=== PATIENT | female | born 1990 | race Caucasian/White ===

== ENCOUNTER → 2019-11-18 | Outpatient (REF) | payer OTHER | LOC: M LAB REF 10:05 | PROVIDERS: ATTEND Physician Assistant | DX: J02.9 Acute pharyngitis, unspecified (principal) ==

== ENCOUNTER → 2020-04-08 | Outpatient (REF) | payer OTHER ==
[2020-04-08 16:54] LABS: HEMOGLOBIN 12.7 g/dl (12.0-15.5); MEAN CORPUSCULAR HEMOGLOBIN 30.5 pg (27.0-33.0); MEAN CORPUSCULAR HGB CONC 34.3 g/dl (32.0-36.5); MEAN CORPUSCULAR VOLUME 88.7 fl (80.0-96.0); PLATELET COUNT, AUTOMATED 234 10^3/uL (150-450); RED BLOOD COUNT 4.17 10^6/uL (4.00-5.40); WHITE BLOOD COUNT 8.1 10^3/uL (4.0-10.0)
[2020-04-08 17:43] LABS: HCG, SERUM QUANTITATIVE 111485 MIU/ML
[2020-04-09 10:08] LABS: HEPATITIS C VIRUS ABY INDEX 0.2 INDEX (<0.8); HIV 1&2 SCREEN CENTAUR NEGATIVE (NEGATIVE)
== END ==
LOC: M LAB REF 16:29
PROVIDERS: ATTEND Obstetrics & Gynecology
DX: O36.80X0 Pregnancy with inconclusive fetal viability, not applicable or unspecified (principal); Z3A.00 Weeks of gestation of pregnancy not specified

== ENCOUNTER → 2020-04-13 | Outpatient (CLI) | payer OTHER ==
--- NOTE | 2020-04-13 16:35 | REP ---
INDICATION: DATING/VIABILITY COMPARISON: None. TECHNIQUE: Transabdominal 1st trimester obstetrical ultrasound with color Doppler evaluation. FINDINGS: Single live early intrauterine is appreciated. Gestational sac with yolk sac and pole identified. [place]-rump length of 2 cm corresponds to 8 weeks 4 days gestational age with estimated date of delivery 11/19/2020. heart rate equals 179 beats per minute. No gross abnormalities are identified. Left maternal adnexal cyst measuring 2.4 x 2.1 x 2.0 cm likely corpus luteum. IMPRESSION: Single live early intrauterine at 8 weeks 4 days gestational age. Complete anatomical assessment should be performed and 19-20 weeks. <Electronically signed by Galdino Olivo > 04/13/20 [id number]
== END ==
LOC: M WHC 15:59
PROVIDERS: ATTEND Advanced Practice Midwife
DX: Z36.89 Encounter for other specified antenatal screening (principal); Z3A.08 8 weeks gestation of pregnancy

== ENCOUNTER → 2020-04-13 | Outpatient (CLI) | payer SELFPAY | LOC: M LABSMTC 14:25 | PROVIDERS: ATTEND Pediatrics | DX: Z20.828 Contact with and (suspected) exposure to other viral communicable diseases (principal) ==

== ENCOUNTER → 2020-06-24 | Outpatient (CLI) | payer OTHER ==
--- NOTE | 2020-06-24 12:06 | REP ---
INDICATION: ANATOMY COMPARISON: 04/13/2020 TECHNIQUE: Transabdominal obstetrical ultrasound with color Doppler evaluation. FINDINGS: Examination demonstrates a single live intrauterine in breech presentation. motion is identified by technologist. Placenta is noted posterior and grade 1 without evidence for placenta previa or abruption. Amniotic fluid volume is normal. Cervix measures 3.1 cm in length and appears closed.. Gestational age by LMP and 1st ultrasound 19 weeks 0 days with DANK 11/18/2020. Gestational age by current measurements 18 weeks 3 days with DANK 11/22/2020. FHR equals 158 beats per minute. BPD: 3.9 cm at 17 weeks 6 days HC: 14.9 cm at 18 weeks 0 days AC: 13.5 cm at 19 weeks 0 days FL: 2.8 cm at there is 18 weeks 4 days HL: 2.7 cm at 18 weeks 4 days HC/AC: 1.10 Estimated weight 253 grams (29thpercentile). Anatomical assessment demonstrates normal structures including cranium, choroid plexus, cavum, cerebellum/posterior fossa, facial features, lungs, four-chamber heart/ventricular outflow tracts, diaphragm, stomach, cord insertion/three-vessel cord, kidneys/bladder, spine, and extremities. IMPRESSION: Single live intrauterine in breech presentation demonstrating appropriate estimated weight. Anatomical assessment is complete and normal. <Electronically signed by Galdino Olivo > 06/24/20 [id number]
== END ==
LOC: M WHC 08:58
PROVIDERS: ATTEND Obstetrics & Gynecology
DX: Z34.82 Encounter for supervision of other normal pregnancy, second trimester (principal); Z3A.18 18 weeks gestation of pregnancy

== ENCOUNTER → 2020-06-24 | Outpatient (CLI) | payer OTHER | LOC: M PLALAB 11:30 | PROVIDERS: ATTEND Obstetrics & Gynecology | DX: Z34.90 Encounter for supervision of normal pregnancy, unspecified, unspecified trimester (principal); Z3A.00 Weeks of gestation of pregnancy not specified ==

== ENCOUNTER → 2020-08-19 | Outpatient (REF) | payer OTHER ==
[2020-08-19 18:07] LABS: HEMATOCRIT 33.2 % (36.0-47.0); HEMOGLOBIN 11.5 g/dl (12.0-15.5); MEAN CORPUSCULAR HEMOGLOBIN 32.8 pg (27.0-33.0); MEAN CORPUSCULAR HGB CONC 34.6 g/dl (32.0-36.5); MEAN CORPUSCULAR VOLUME 94.6 fl (80.0-96.0); PLATELET COUNT, AUTOMATED 193 10^3/uL (150-450); RED BLOOD COUNT 3.51 10^6/uL (4.00-5.40); WHITE BLOOD COUNT 9.1 10^3/uL (4.0-10.0)
== END ==
LOC: M PLALAB 14:36
PROVIDERS: ATTEND Advanced Practice Midwife
DX: Z34.92 Encounter for supervision of normal pregnancy, unspecified, second trimester (principal); Z3A.23 23 weeks gestation of pregnancy
CPT/HCPCS: 36415; 82950; 85027; 86850; 86900; 86901; J2790

== ENCOUNTER → 2020-10-20 | Outpatient (REF) | payer OTHER | LOC: M PLALAB 18:23 | PROVIDERS: ATTEND Obstetrics & Gynecology | DX: Z36.89 Encounter for other specified antenatal screening (principal); Z3A.36 36 weeks gestation of pregnancy ==

== ENCOUNTER → 2020-10-22 | Outpatient (REF) | payer OTHER | LOC: M SFHCWAGY 13:05 | PROVIDERS: ATTEND Obstetrics & Gynecology | DX: Z34.93 Encounter for supervision of normal pregnancy, unspecified, third trimester (principal); Z3A.36 36 weeks gestation of pregnancy ==

== ENCOUNTER 2020-11-17 15:38 | Inpatient (IN) | payer OTHER ==
[~2020-11-17] VITALS: Ht 157.5 cm; Wt 73.7 kg
[2020-11-17] VITALS (18 sets, daily range): BP systolic 129–150; BP diastolic 66–99
[2020-11-17] MEDS ORDERED: TUMS750C22 PO (16:04)
[2020-11-17] MEDS ORDERED: PRENTAB9 PO (16:04)
[2020-11-17 17:38] LABS: HEMATOCRIT 35.2 % (36.0-47.0); HEMOGLOBIN 12.4 g/dl (12.0-15.5); MEAN CORPUSCULAR HGB CONC 35.2 g/dl (32.0-36.5); PLATELET COUNT, AUTOMATED 160 10^3/uL (150-450); RED BLOOD COUNT 3.87 10^6/uL (4.00-5.40); WHITE BLOOD COUNT 9.3 10^3/uL (4.0-10.0)
[2020-11-17 17:47] LABS: TOTAL PROTEIN,RANDOM URINE 7.1 MG/DL (0.0-12.0)
[2020-11-17 18:01] LABS: ALBUMIN 2.3 GM/DL (3.2-5.2); ALT/SGPT 18 U/L (12-78); BILIRUBIN,TOTAL 0.4 MG/DL (0.2-1.0); BLOOD UREA NITROGEN 11 MG/DL (7-18); CALCIUM LEVEL 8.3 MG/DL (8.5-10.1); CARBON DIOXIDE LEVEL 23 MEQ/L (21-32); CHLORIDE LEVEL 110 MEQ/L (98-107); CREATININE FOR GFR 0.48 MG/DL (0.55-1.30); GLOMERULAR FILTRATION RATE > 60.0 (>60); GLUCOSE, FASTING 72 MG/DL (70-100); LDH LACTATE DEHYDROGENASE 139 U/L (84-246); POTASSIUM SERUM 3.9 MEQ/L (3.5-5.1); SODIUM LEVEL 142 MEQ/L (136-145); TOTAL PROTEIN 5.5 GM/DL (6.4-8.2); URIC ACID 5.3 MG/DL (2.6-6.0)
[2020-11-17] MEDS ORDERED: LACTATED RINGER'S 1000 ML IV STA (19:03)
[2020-11-17] MEDS ORDERED: OXYTOCIN DRIP 30 UNITS in IV 1 EA IV PRN (19:05)
[2020-11-17] MEDS ORDERED: METHYLERGONOVINE MALEATE 0.2 MG/ML VIAL (J2210) IM PRN (19:05)
[2020-11-17] MEDS ORDERED: LIDOCAINE 1% MDV 20ML VIAL INFIL PRN (19:05)
[2020-11-17] MEDS ORDERED: OXYTOCIN DRIP 30 UNITS in IV 1 EA IV SCH (19:05)
[2020-11-17] MEDS ORDERED: CARBOPROST TROMETHAMINE 250 MCG/ML AMP IM PRN (19:05)
[2020-11-17] MEDS ORDERED: LR 1,000 ML IV SCH ×2 (19:05)
[2020-11-17] MEDS ORDERED: TRANEXAMIC ACID INJection 1,000 MG in NS 100 ML IV PRN (19:05)
[2020-11-17] MEDS ORDERED: OXYTOCIN 30 UNITS IN 0.9% NaCl 500ML IV BAG (J2590) As Ordered ONE (19:06)
[2020-11-18] VITALS (11 sets, daily range): BP systolic 118–159; BP diastolic 67–97
[2020-11-18 00:02] LABS: GC DNA AMPLIFICATION NEGATIVE (NEGATIVE)
--- NOTE | 2020-11-18 01:34 | HPEPDOC ---
Obstetrical History & Physical General Date of Admission Nov 17, 2020 at 19:02 History of Present Illness 30-year-old G 2 P 1001 admitted at 39+6 weeks gestation. Presents for an induction of labor. Indication for induction: Gestational hypertension She denies vaginal bleeding, loss of fluid or painful, frequent uterine contra ctions. She reports regular movement. She denies headache, visual changes, right upper quadrant pain, shortness of breath or chest pain. 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 STI or dysplasia OB: 2018, 38 weeks, , complicated by gestational hypertension/IOL, hemorrhage retained placenta Sochx: No tobacco, alcohol or drug use FamHx: Hypertension, paternal grandfather had breast cancer labs: Blood type A-, antibody screen negative, HepBsAg neg, HIV neg, rubella immune, Hep C antibody negative, RPR nonreactive, CT/GC neg, urine cu lture negative, 1 hour glucose challenge test within normal limits, GBS negative Past Medical History Allergies Coded Allergies: No Known Allergies (Unverified , 11/17/20) Medications Scheduled Calcium Carbonate (Tums) 300 Mg Tab.chew, 1 TAB PO BID No.137/Iron/Folic Acd ( Vitamin Tablet) 1 Each Tablet, 1 TAB PO DAILY Physical Examination Physical Examination Initial blood pressures were hypertensive GENERAL: Alert and oriented times three. ABDOMEN: Gravid and non-tender to touch. FETUS: Is vertex (VTX) by sterile vaginal examination (SVE), fetus is vertex (VTX) by Dayo. HEART RATE: Regular rate and rhythm. LUNGS: Clear to auscultation (CTA). EXTREMITIES: No edema. No clonus. Deep tendon reflexes (DTRs) + 2 SVE: 4 cm 80% effaced -2 station, cephalic, intact, no bloody show EFM: Category 1 [place]: Irregular infrequent contractions upon admission Vital Signs/I&O Vital Signs Date Time Temp Pulse Resp B/P (MAP) Pulse Ox O2 Delivery O2 Flow Rate FiO2 11/18/20 00:05 89 18 118/74 (89) 11/17/20 22:55 97.9 Laboratory Data 24H LABS Laboratory Tests 2 11/17/20 16:56: Urine Random Creatinine 122.0, Urine Random Total Protein 7.1 11/17/20 17:25: Nucleated Red Blood Cells % (auto) 0.0, Anion Gap 9, Glomerular Filtration Rate > 60.0, Uric Acid 5.3, Calcium Level 8.3L, Total Bilirubin 0.4, Aspartate Amino Transf (AST/SGOT) 13, Alanine Aminotransferase (ALT/SGPT) 18, Alkaline Phosphatase 150H, Lactate Dehydrogenase 139, Total Protein 5.5L, Albumin 2.3L, Albumin/Globulin Ratio 0.7L, Syphilis Serology NONREACTIVE 11/17/20 19:06: Serology Scanned Report Hepatitis B Testing 11/17/20 21:21: Chlamydia trachomatis DNA (DAGOBERTO) NEGATIVE, Neisseria gonorrhoeae DNA (DAGOBERTO) NEGATIVE CBC/BMP Laboratory Tests 11/17/20 17:25 Assessment/Plan Assessment 30-year-old -0-0-1 admitted at 39+6 weeks gestation with a diagnosis of gestational hypertension. Reassuring maternal and status Plan Admit and orient. Paper Goods Machine Operator and consent. Labs and intravenous (IV) per unit protocol. Rationale for recommendation of induction of labor reviewed with the patient and her family Counseled on Pitocin and induction of labor (IOL). Anticipate normal spontaneous delivery (). C-S as appropriate. TI CHIRINOS DO Nov 18, 2020 01:34
--- NOTE | 2020-11-18 01:37 | IPNPDOC ---
Obstetrical Progress Note Date of Service Nov 18, 2020 Subjective Patient becoming more uncomfortable with contractions. No loss of fluid or vaginal bleeding. Continues to deny any headaches visual changes right upper quadrant pain shortness breath or chest pain Objective Vital Signs Date Time Temp Pulse Resp B/P (MAP) Pulse Ox O2 Delivery O2 Flow Rate FiO2 11/18/20 00:05 89 18 118/74 (89) 11/17/20 22:55 97.9 Assessment Heart Rate Tracing: Category I Tocometer Contractions: Yes Frequency: every 2-5 min. (Pitocin at 8 milliunits/min) Sterile Vaginal Examination Dilation: 5 cm Effacement (%): 100% Station: -1 Cervical Consistency: Soft Cervical Position: Anterior Postion/Presentation: Cephalic presentation Assessment and Plan Status: Reassuring Anticipate: Vaginal Delivery Additional Comments Artificial rupture membranes clear Reassured maternal and status Continue with Pitocin as needed TI CHIRINOS DO Nov 18, 2020 01:37
[2020-11-18] MEDS ORDERED: IBUPROFEN 600MG TAB PO PRN (04:15)
[2020-11-18] MEDS ORDERED: DIBUCAINE 1% OINTMENT 30GM TOP PRN (04:15)
[2020-11-18] MEDS ORDERED: DOCUSATE SODIUM 100MG CAPSULE PO PRN (04:15)
[2020-11-18] MEDS ORDERED: ACETAMINOPHEN TAB 650MG DOSE (2X325MG) PO PRN (04:15)
[2020-11-18] MEDS ORDERED: OXYTOCIN DRIP 30 UNITS in IV 1 EA IV SCH (04:15)
[2020-11-18] MEDS ORDERED: IBUPROFEN 800 MG TAB PO PRN (04:15)
[2020-11-18] MEDS ORDERED: MEASLES,MUMPS,RUBELLA VACCINE INJ (MMR-II) (90707) SC SCH (04:15)
[2020-11-18] MEDS ORDERED: ACETAMINOPHEN 500 MG TAB PO PRN (04:15)
[2020-11-18] MEDS ORDERED: RHOGAM 300 MCG (1500 IU) INJ (J2790) IM SCH (04:15)
[2020-11-18] MEDS: LR 1,000 ML IV SCH ×3 (04:15→20:15)
--- NOTE | 2020-11-18 04:21 | DNPDOC ---
[facility] Delivery Note Delivery Note DATE OF DELIVERY: 11/18/2020 TIME OF DELIVERY: 0342 Spontaneous vaginal delivery. INSTRUMENT CALIBRATOR: Dr. Isra Thomas DO FACOG ANESTHESIA: Local, during perineal repair LACERATION: Second-degree ESTIMATED BLOOD LOSS: 300 mL. FINDINGS: 7 pound 13 ounce (3530g) female , Score 8 and 9. DELIVERY SUMMARY: The active phase and second stage of labor progressed in normal fashion. She received Pitocin augmentation throughout her labor course. The head delivered in the REID position, and restituted LOT. No nuchal cord was noted. The anterior shoulder delivered with gentle downward guidance and the remainder of the body delivered with ease. The baby was placed on the patient's chest. Delayed cord clamping occurred for approximately 1 minute. The cord was then doubly clamped and cut. IV Pitocin was bolused to actively manage the third stage of labor. The placenta delivered intact without any difficulty within 10 minutes of delivery. The uterine fundus was noted to be firm and 2 cm below the umbilicus. The cervix, vagina, vulva and perineum were inspected. A second-degree laceration was noted and immediately repaired with 3-0 Vicryl in typical fashion, after administering local anesthesia. Excellent hemostasis was noted. Sponge, needle and instrument counts were correct per protocol. DO JUNE Saavedra JONATHAN R. DO Nov 18, 2020 04:21
[2020-11-18] MEDS ORDERED: LIDOCAINE 1% MDV 20ML VIAL INFIL ONE (04:25)
[2020-11-18] MEDS: PRENATAL VITAMINS CHEWABLE TABLET PO SCH (09:30)
[2020-11-18] MEDS: FERROUS SULFATE 325MG TAB PO SCH (09:30)
[2020-11-19] MEDS: LR 1,000 ML IV SCH (04:15)
[2020-11-19 06:00] VITALS: BP 132/82
[2020-11-19] MEDS: PRENATAL VITAMINS CHEWABLE TABLET PO SCH (08:43)
[2020-11-19] MEDS: FERROUS SULFATE 325MG TAB PO SCH (08:43)
== END 2020-11-19 13:30 | disposition home or self-care (01) | DRG 560 ==
LOC: M LDO 15:38 → M LDI 19:02 → M OBS 11-18 07:11
PROVIDERS: ADMIT Obstetrics & Gynecology; ATTEND Obstetrics & Gynecology
PROC: 3E033VJ Introduction of Other Hormone into Peripheral Vein, Percutaneous Approach (ICD-10-PCS; 2020-11-17)
PROC: 10E0XZZ Delivery of Products of Conception, External Approach (ICD-10-PCS; principal; 2020-11-18)
PROC: 10907ZC Drainage of Amniotic Fluid, Therapeutic from Products of Conception, Via Natural or Artificial Opening (ICD-10-PCS; 2020-11-18)
PROC: 0KQM0ZZ Repair Perineum Muscle, Open Approach (ICD-10-PCS; 2020-11-18)
DX: O13.4 Gestational [pregnancy-induced] hypertension without significant proteinuria, complicating childbirth (principal); Z3A.39 39 weeks gestation of pregnancy; Z37.0 Single live birth; O70.1 Second degree perineal laceration during delivery

== ENCOUNTER → 2022-11-30 | Outpatient (CLI) | payer OTHER ==
[~2022-11-30] MED LIST: PRENTAB9 PO; TUMS750C22 PO
[2022-11-30 13:30] LABS: BASO % 0.4 % (0.0-1.0); EOS # 0.1 10^3/uL (0.0-0.5); EOS % 0.6 % (0.0-3.0); HEMATOCRIT 41.4 % (36.0-47.0); HEMOGLOBIN 14.2 g/dl (12.0-15.5); LYMPH # 2.2 10^3/uL (1.5-5.0); LYMPH % 24.5 % (24.0-44.0); MEAN CORPUSCULAR HEMOGLOBIN 30.8 pg (27.0-33.0); MEAN CORPUSCULAR HGB CONC 34.3 g/dl (32.0-36.5); MEAN CORPUSCULAR VOLUME 89.8 fl (80.0-96.0); MONO # 0.7 10^3/uL (0.0-0.8); MONO % 7.9 % (2.0-8.0); NEUTROPHILS % 66.3 % (36.0-66.0); PLATELET COUNT, AUTOMATED 235 10^3/uL (150-450); RED BLOOD COUNT 4.61 10^6/uL (4.00-5.40)
[2022-11-30 13:36] LABS: IRON (FE) 108 UG/DL (50-170); PERCENT SATURATION 34.7 % (13.2-45.0); TOTAL IRON BINDING CAPACITY 311 UG/DL (250-425)
[2022-11-30 13:37] LABS: ALBUMIN 3.9 G/DL (3.2-5.2); ALKALINE PHOSPHATASE 55 U/L (46-116); ALT/SGPT 15 U/L (7.0-40); AST/SGOT 8 U/L (<34); BLOOD UREA NITROGEN 9 MG/DL (9-23); CARBON DIOXIDE LEVEL 26 MMOL/L (20-31); CHLORIDE LEVEL 107 MMOL/L (98-107); CHOLESTEROL LEVEL 166 MG/DL (<200); CHOLESTEROL RISK RATIO 3.13 (<5); FREE T4 0.97 NG/DL (0.89-1.76); GLOMERULAR FILTRATION RATE > 60.0 (>60); GLUCOSE, FASTING 75 MG/DL (60-100); LDL CHOLESTEROL 101.2 MG/DL (<100); POTASSIUM SERUM 4.1 MMOL/L (3.5-5.1); SODIUM LEVEL 139 MMOL/L (136-145); THYROID STIMULATING HORMONE 4.555 uIU/ML (0.55-4.78); TOTAL PROTEIN 6.7 G/DL (5.7-8.2); TRIGLYCERIDES LEVEL 59 MG/DL (<150)
[2022-11-30 13:38] LABS: FERRITIN 21.8 NG/ML (7.3-270.7); TOTAL 25(OH) VITAMIN D 29.6 NG/ML (20.0-100.0); VITAMIN B12 LEVEL 291 PG/ML (211-911)
[2022-11-30 13:45] LABS: HEMOGLOBIN A1c 5.1 % (4.0-6.0)
== END ==
LOC: M PLALAB 10:47
PROVIDERS: ATTEND Physician Assistant
DX: R53.83 Other fatigue (principal); N94.6 Dysmenorrhea, unspecified; Z13.220 Encounter for screening for lipoid disorders; Z13.1 Encounter for screening for diabetes mellitus

== ENCOUNTER → 2022-12-05 | Outpatient (REF) | payer OTHER | LOC: M SFHCWAGY 13:12 | PROVIDERS: ATTEND Nurse Practitioner Family | DX: N73.9 Female pelvic inflammatory disease, unspecified (principal); Z12.4 Encounter for screening for malignant neoplasm of cervix; Z01.419 Encounter for gynecological examination (general) (routine) without abnormal findings; Z77.9 Other contact with and (suspected) exposures hazardous to health ==

== ENCOUNTER → 2022-12-08 | Outpatient (REF) | payer OTHER | LOC: M SFHCWAGY 09:55 | PROVIDERS: ATTEND Nurse Practitioner Family | DX: R87.615 Unsatisfactory cytologic smear of cervix (principal) | CPT/HCPCS: 87624; G0123 ==

== ENCOUNTER → 2023-12-05 | Outpatient (CLI) | payer OTHER ==
[2023-12-05 13:01] LABS: BASO % 0.5 % (0.0-1.0); EOS # 0.1 10^3/uL (0.0-0.5); EOS % 0.8 % (0.0-3.0); HEMATOCRIT 41.1 % (36.0-47.0); HEMOGLOBIN 14.4 g/dl (12.0-15.5); LYMPH # 1.9 10^3/uL (1.5-5.0); LYMPH % 24.9 % (24.0-44.0); MEAN CORPUSCULAR HEMOGLOBIN 30.8 pg (27.0-33.0); MONO # 0.7 10^3/uL (0.0-0.8); MONO % 8.7 % (2.0-8.0); NEUTROPHILS % 64.7 % (36.0-66.0); PLATELET COUNT, AUTOMATED 250 10^3/uL (150-450); RED BLOOD COUNT 4.67 10^6/uL (4.00-5.40); WHITE BLOOD COUNT 7.7 10^3/uL (4.0-10.0)
[2023-12-05 13:48] LABS: ALKALINE PHOSPHATASE 57 U/L (46-116); ALT/SGPT 12 U/L (7.0-40); AST/SGOT 10 U/L (<34); BILIRUBIN,TOTAL 1.1 MG/DL (0.3-1.2); BLOOD UREA NITROGEN 8 MG/DL (9-23); CALCIUM LEVEL 9.4 MG/DL (8.5-10.1); CARBON DIOXIDE LEVEL 29 MMOL/L (20-31); CHLORIDE LEVEL 106 MMOL/L (98-107); CREATININE FOR GFR 0.64 MG/DL (0.55-1.30); FERRITIN 21.4 NG/ML (7.3-270.7); FREE T4 1.02 NG/DL (0.89-1.76); GLOMERULAR FILTRATION RATE > 60.0 (>60); GLUCOSE, FASTING 81 MG/DL (60-100); IRON (FE) 138 UG/DL (50-170); PERCENT SATURATION 45.4 % (13.2-45.0); POTASSIUM SERUM 3.9 MMOL/L (3.5-5.1); SODIUM LEVEL 139 MMOL/L (136-145); THYROID STIMULATING HORMONE 3.059 uIU/ML (0.55-4.78); TOTAL IRON BINDING CAPACITY 304 UG/DL (250-425)
[2023-12-05 13:52] LABS: TOTAL 25(OH) VITAMIN D 35.3 NG/ML (20.0-100.0); VITAMIN B12 LEVEL 432 PG/ML (211-911)
[2023-12-05 13:57] LABS: FOLATE > 24.0 NG/ML (>5.4)
== END ==
LOC: M PLALAB 10:36
PROVIDERS: ATTEND Physician Assistant
DX: Z00.00 Encounter for general adult medical examination without abnormal findings (principal); R20.0 Anesthesia of skin; R20.2 Paresthesia of skin; R68.89 Other general symptoms and signs

== ENCOUNTER → 2023-12-12 | Outpatient (REF) | payer OTHER ==
[2023-12-16 12:02] LABS: HPV APTIMA Not Detected (Not Detected)
== END ==
LOC: M SFHCWAGY 10:32
PROVIDERS: ATTEND Nurse Practitioner Family
DX: Z12.4 Encounter for screening for malignant neoplasm of cervix (principal); Z11.51 Encounter for screening for human papillomavirus (HPV)
CPT/HCPCS: 87624; G0123

== ENCOUNTER → 2024-08-26 | Outpatient (REF) | payer OTHER ==
[2024-08-26 18:31] LABS: Trichomonas vaginalis (AMP) NOT DETECTED (NEGATIVE)
[2024-08-26 19:17] LABS: GC DNA AMPLIFICATION QNS (NEGATIVE)
== END ==
LOC: M SFHCWAGY 16:48
PROVIDERS: ATTEND Nurse Practitioner Family
DX: R10.2 Pelvic and perineal pain (principal)